=== PATIENT | male | born 1960 | race African-American/Black ===

== ENCOUNTER 2019-07-06 12:03 | Day surgery (SDC) | payer OTHER ==
[~2019-07-06] VITALS: Ht 180.3 cm; Wt 90.0 kg
[2019-07-06] VITALS (16 sets, daily range): BP systolic 100–138; BP diastolic 53–83; PULSE 66–84; RESP 16–27; Ht 180.3 cm; Wt 90.0 kg
[~2019-07-06 12:03] MED LIST: AMLO-147 PO; ASPI81TA52 PO; FER325 PO; INSU100I33 SC; METF-849; OMEP40CA6 PO; SIMV10TA PO
[2019-07-06] MEDS ORDERED: CEFAZOLIN 2 GM/50 ML (PMX) 50 ML IVPB SCH (14:00)
[2019-07-06] MEDS ORDERED: SOD CHLORIDE 0.9% 1,000 ML IV ONE (14:00)
--- NOTE | 2019-07-06 14:18 | PREAC ---
Date/Time of Note Date/Time of Note DATE: 07/06/19 TIME: 14:17 Anesthesia Eval and Record Evaluation Time Pre-Procedure Interview DATE: 07/06/19 TIME: 14:17 Age 59 Sex male NPO: 8 hrs Preoperative diagnosis HEMORRHOIDS Planned procedure HEMORRHOIDECTOMY Past Medical History Past Medical History: Includes Cardio: HTN, Dyslipidemia Endo: Diabetes Pulm: Smoking Hx Renal: VLADIMIR Hepatic: Hepatitis (hep c) GI: GERD Surgery & Anesthesia Issues No known issue Meds Anticoagulation: No Beta Rosalie within 24 hr: No Reason Beta Rosalie not given: Pt. not on B-Rosalie Reported Medications Omeprazole* (Omeprazole*) 40 Mg Capsule.dr, 40 MG PO DAILY, #30 CAP 07/06/19 Simvastatin* (Zocor*) 10 Mg Tablet, 10 MG PO QHS, #30 TAB 07/06/19 Ferrous Sulfate* (Ferrous Sulfate*) 325 Mg Tabec, 325 MG PO BID, TAB 07/06/19 Aspirin (Low Dose Aspirin) 81 Mg Tablet.dr, 81 MG PO DAILY, #30 TAB 07/06/19 Amlodipine Besylate* (Amlodipine Besylate*) 10 Mg Tablet, 10 MG PO DAILY, #30 TAB 07/06/19 Insulin Glargine,Hum.rec.anlog (Basaglar Kwikpen U-100) 100 Unit/1 Ml Insuln.pen, 42 UNIT SC QAM, EA 07/06/19 Discontinued Reported Medications Metformin* (Glucophage*) 500 Mg Tab 02/17/11 Current Medications Cefazolin Sodium/ Dextrose 50 ml @ 100 mls/hr PRE-OP IVPB ; Start 07/06/19 at 14:00; Stop 07/06/19 at 18:00 Sodium Chloride 1,000 ml @ 75 mls/hr [id number] ONCE IV Last administered on 07/06/19at 13:12; Admin Dose 75 MLS/HR; Start 07/06/19 at 14:00; Stop 07/07/19 at 03:19 Meds reviewed: Yes Allergies Coded Allergies: No Known Drug Allergies (Verified Allergy, Mild, 07/06/19) Allergies Reviewed: Yes Labs/Studies Labs Reviewed: Reviewed by anesthesiologist test: N/A Studies: ECG, CXR Pre-procedure Exam Last vitals Vital Signs Date Temp Pulse Resp B/P (MAP) Pulse Ox O2 O2 Flow FiO2 Time Delivery Rate 8/14/19 98.3 84 16 129/72 99 13:20 (91) Airway: Adequate mouth opening Mallampati: Mallampati II Teeth: Normal Lung: Normal Heart: Normal ASA Physical Status ASA physical status: 3 Emergency: None Planned Anesthetic General/MAC: ETT Pre-operative Attestations Prior to commencing anesthesia and surgery, the patient was re-evaluated, there was verification of: *The patient's identity *The results of appropriate recent lab work and preoperative vital signs *The above evaluation not changing prior to induction *Anesthetic plan, risk benefits, alternative and complications discussed with patient/family; questions answered; patient/family understands, accepts and wishes to proceed. SHERICE HALEY Jul 06, 2019 14:18
[2019-07-06] MEDS ORDERED: BUPIVACAINE 0.25% (MPF) 30 ML INJ ONE (15:29)
[2019-07-06] MEDS ORDERED: PROPOFOL 20 ML ONE (16:00)
--- NOTE | 2019-07-06 16:03 | HPN ---
Date/Time of Note Date/Time of Note DATE: 07/06/19 TIME: 16:03 Interval H&P Admission Note Pt. seen H&P reviewed: No system changes RAF HARRINGTON MD Jul 06, 2019 16:03
[2019-07-06] MEDS ORDERED: LIDOCAINE 2% (SDV) 5 ML INJ ONE (16:29)
[2019-07-06] MEDS ORDERED: LABETALOL HCL 20MG INJ ONE (16:30)
[2019-07-06] MEDS ORDERED: CEFAZOLIN 1 GM INJ ONE (16:58)
[2019-07-06] MEDS ORDERED: ONDANSETRON 4 MG INJ IV PRN ×3 (17:00→17:30)
[2019-07-06] MEDS ORDERED: OXYCODONE/ACETAMINOPHEN (5/325) TAB PO PRN ×6 (17:00→17:30)
--- NOTE | 2019-07-06 17:03 | PAC ---
Date/Time of Note Date/Time of Note DATE: 07/06/19 TIME: 17:03 Post-Anesthesia Notes Post-Anesthesia Note Last documented vital signs Vital Signs Date Temp Pulse Resp B/P (MAP) Pulse Ox O2 O2 Flow FiO2 Time Delivery Rate 07/06/19 98.3 84 16 129/72 99 1703 (91) Activity: WNL Respiratory function: WNL Cardiovascular function: WNL Mental status: Baseline Pain reasonably controlled: Yes Hydration appropriate: Yes Nausea/Vomiting absent: Yes GILMAR KENDRICK Jul 06, 2019 17:03
[2019-07-06] MEDS ORDERED: FENTAnyl 50 MCG/ML VIAL ONE (17:05)
--- NOTE | 2019-07-06 17:08 | OPR ---
Date/Time of Note Date/Time of Note DATE: 07/06/19 TIME: 16:57 Operative Report Procedure Date: Jul 06, 2019 Preoperative Diagnosis Internal/external hemorrhoids with bleeding Postoperative Diagnosis 1. Internal/external hemorrhoids with bleeding 2. Fungating anal mass 3. Fecal impaction Operation/Procedure Performed 1. Internal/external hemorrhoidectomy 2. Biopsy of fungating anal mass 3. Manual fecal disimpaction 4. Rigid sigmoidoscopy Surgeon see signature line Pharmacy Operations Specialist None Anesthesia Type: general Anesthesiologist: GILMAR KENDRICK Estimated Blood Loss: 50 - 100 ml's Transfusion none Specimen 1. Internal/external hemorrhoids 2. Fungating anal mass biopsy Grafts/Implants none Complications none Pt Condition Post Procedure: stable Disposition: PACU Indications The patient is a 59-year-old -Turk[place] male with multiple comorbidities who presented to the office with complaints of prolapsing and bleeding hemorrhoids. Patient had tried and failed medical therapy without any relief. In office physical exam was difficult given patient's discomfort. Therefore, he was scheduled for exam under anesthesia, total internal/external hemorrhoidectomy and rigid sigmoidoscopy. All risks and benefits of the procedure including, but not limited to: Wound infection, excessive bleeding, prolonged wound healing, incontinence to stool/feces which may be temporary versus permanent, anal stricture, hemorrhoid recurrence, etc. were all explained to the patient in full detail. The patient fully understood and wished to proceed with the procedure. Informed consent was obtained. Medical clearance was obtained prior to the procedure. The patient was instructed to take enemas the day before and morning of surgery, however, he did not. Procedure Description Patient was brought to the operating room and placed supine on the operating table. Bilateral sequential compression devices were placed on both lower extremities. A dose of broad-spectrum perioperative intravenous antibiotics was given. After the induction of smooth general anesthesia the patient was positioned in the lithotomy position using Luigi stirrups with all pressure points padded. The anus, perineum and buttocks were prepped and draped in standard surgical fashion. Prior to prepping the patient it was noted that he was oozing from prolapsing hemorrhoids. After performance of the surgical time out 0.25% Marcaine was injected around the anus. Digital rectal exam showed the anal canal and distal rectum to be impacted with hard stool balls. Manual disimpaction was performed. Exam under anesthesia showed internal and external hemorrhoids, some which were oozing. On the right posterior lateral anal canal extending to the gluteal area was what appeared to be a fungating mass arising from the anal canal. The mass was very friable and would easily bleed with the slightest manipulation. Attention was then turned towards the bleeding internal hemorrhoids. They were each grasped with a Schwartz clamp however they were very friable. Incision was made in the perianal skin using the cut mode of the Bovie electrocautery. The hemorrhoids were then transected at their base using the LigaSure device and passed off the field as specimen. Intraoperative pathology consultation was obtained in regards to the fungating mass. They recommended specimen to be sent for permanent analysis. Using a 15 blade scalp el biopsies were taken from the middle of this fungating mass and passed off the field. Rigid sigmoidoscopy was then performed. Quality of the prep was poor as there was a lot of stool. Adequate visualization of any masses or anorectal pathology could not be performed due to poor quality prep. At this point given the suspicion for possible malignant disease it was decided to not perform a complete hemorrhoidectomy and to instead terminate the procedure. The remainder of the fungating mass was fulgurated using the cautery device in order to ensure hemostasis. The anal canal comfortably fit 2 fingers upon completion of the procedure. Fibrillar was then applied as well as a pressure dressing. The patient was then awoken from anesthesia and transferred to recovery room in stable condition. All counts were correct at the end of the case 2. RAF HARRINGTON MD Jul 06, 2019 17:08
[2019-07-06] MEDS ORDERED: HYDROmorphONE 1 MG/5 ML IV SYRINGE IV ONE (17:18)
[2019-07-06] MEDS ORDERED: MEPERIDINE 25 MG INJ IV PRN (17:30)
[2019-07-06] MEDS ORDERED: DIPHENHYDRAMINE 50 MG INJ IV PRN (17:30)
[2019-07-06] MEDS ORDERED: hydrALAzine 20 MG INJ IV PRN (17:30)
[2019-07-06] MEDS ORDERED: ALBUTEROL 0.083% (NEB) 2.5 MG/3 ML AMP HHN PRN (17:30)
[2019-07-06] MEDS ORDERED: EPHEDrine 25 MG/5 ML SYG IV PRN (17:30)
[2019-07-06] MEDS ORDERED: LABETALOL HCL 20MG INJ IV PRN (17:30)
[2019-07-06] MEDS ORDERED: HYDROmorphONE 1 MG/5 ML IV SYRINGE IV PRN ×3 (17:30)
== END 2019-07-06 18:49 | disposition home or self-care (01) ==
LOC: SDS 12:03
PROVIDERS: ATTEND Surgery
DX: K64.8 Other hemorrhoids (principal); K64.4 Residual hemorrhoidal skin tags; I10 Essential (primary) hypertension; E11.9 Type 2 diabetes mellitus without complications; E78.5 Hyperlipidemia, unspecified; F17.200 Nicotine dependence, unspecified, uncomplicated; Z79.82 Long term (current) use of aspirin; Z79.4 Long term (current) use of insulin
CPT/HCPCS: 46255; 71045; 82962; J0690; J1170; J2175; J3010; Z7512; Z7610; 88307